=== PATIENT | female | born 1960 | race Caucasian/White ===

== ENCOUNTER 2024-12-26 10:23 | Outpatient (CLI) | payer BC, SELFPAY | END 2024-12-26 10:24 | disposition home or self-care (01) | LOC: MOBLMAM 10:26 | PROVIDERS: PCP Nurse Practitioner Family; Visit Provider Nurse Practitioner Family | DX: Z12.31 Encounter for screening mammogram for malignant neoplasm of breast (principal) | CPT/HCPCS: 77063; 77067 ==